=== PATIENT | female | born 1950 | race Caucasian/White ===

== ENCOUNTER 2018-07-18 07:28 | Emergency (ER) | payer OTHER ==
[~2018-07-18] VITALS: Ht 175.3 cm; Wt 99.8 kg
[~2018-07-18 07:28] MED LIST: BENICAR40 MG PO; CELEXA PO; CLONAZEPAM0.5 MG PO; COZAAR50 MG PO; ECOTRIN500 MG PO; PHENABID D1 TAB.SR . PO; PHENERGAN VC W120 ML PO; PLAVIX75 MG PO; PREVACID15 MG PO; PROVENTIL0.5 ML/2.5 IH; SINGULAIR10 MG PO; ZOCO PO; ZYRTEC10 MG PO
[2018-07-18] MEDS ORDERED: DOXYCYCLINE HY100 MG PO (09:46)
== END 2018-07-18 10:12 | disposition home or self-care (01) ==
LOC: ER 07:28
DX: S61.021A Laceration with foreign body of right thumb without damage to nail, initial encounter (principal); W25.XXXA Contact with sharp glass, initial encounter; Y93.89 Activity, other specified; Y92.128 Other place in nursing home as the place of occurrence of the external cause; Y99.8 Other external cause status

== ENCOUNTER 2019-10-17 14:26 | Outpatient (CLI) | payer OTHER ==
[~2019-10-17 14:26] MED LIST changes: +DOXYCYCLINE HY100 MG PO
== END 2019-10-17 14:33 | disposition home or self-care (01) ==
LOC: NUCLEAR 14:26
DX: I87.2 Venous insufficiency (chronic) (peripheral) (principal)

== ENCOUNTER 2019-10-25 22:23 | Emergency (ER) | payer OTHER ==
[~2019-10-25] VITALS: Ht 175.3 cm; Wt 95.3 kg
[2019-10-25] MEDS ORDERED: NEURONTIN600 M1 (22:51)
[2019-10-25] MEDS ORDERED: HYDROCHLOROTH12.5 MG (22:51)
[2019-10-26] MEDS ORDERED: CEFUROXIME500 MG PO (01:11)
== END 2019-10-26 01:28 | disposition home or self-care (01) ==
LOC: ER 22:23
DX: L03.115 Cellulitis of right lower limb (principal)

== ENCOUNTER 2019-11-24 11:22 | Outpatient (CLI) | payer OTHER ==
[~2019-11-24 11:22] MED LIST changes: +CEFUROXIME500 MG PO; +HYDROCHLOROTH12.5 MG; +NEURONTIN600 M1
== END 2019-11-24 11:30 | disposition home or self-care (01) ==
LOC: NUCLEAR 11:22
DX: I73.9 Peripheral vascular disease, unspecified (principal)

== ENCOUNTER 2020-01-31 12:06 | Outpatient (CLI) | payer OTHER | END 2020-01-31 15:26 | disposition home or self-care (01) | LOC: WOUND MED 12:06 | DX: I83.218 Varicose veins of right lower extremity with both ulcer of other part of lower extremity and inflammation (principal); L97.812 Non-pressure chronic ulcer of other part of right lower leg with fat layer exposed; I10 Essential (primary) hypertension | CPT/HCPCS: A4554; A4930; A6216; A6219; A6266; G0463 ==

== ENCOUNTER 2020-02-07 12:09 | Outpatient (CLI) | payer OTHER | END 2020-02-07 13:00 | disposition home or self-care (01) | LOC: WOUND MED 12:09 | DX: I83.218 Varicose veins of right lower extremity with both ulcer of other part of lower extremity and inflammation (principal); L97.812 Non-pressure chronic ulcer of other part of right lower leg with fat layer exposed; I10 Essential (primary) hypertension | CPT/HCPCS: G0463; A4554; A4930; A6216; A6219 ==

== ENCOUNTER 2020-02-14 11:00 | Outpatient (CLI) | payer OTHER | END 2020-02-14 11:42 | disposition home or self-care (01) | LOC: WOUND MED 11:00 | DX: I83.218 Varicose veins of right lower extremity with both ulcer of other part of lower extremity and inflammation (principal); L97.812 Non-pressure chronic ulcer of other part of right lower leg with fat layer exposed; I10 Essential (primary) hypertension | CPT/HCPCS: G0463; A4554; A4930; A6216; A6219 ==

== ENCOUNTER 2020-02-21 08:44 | Outpatient (CLI) | payer OTHER | END 2020-02-21 10:00 | disposition home or self-care (01) | LOC: WOUND MED 08:44 | DX: I83.218 Varicose veins of right lower extremity with both ulcer of other part of lower extremity and inflammation (principal); L97.812 Non-pressure chronic ulcer of other part of right lower leg with fat layer exposed; I10 Essential (primary) hypertension | CPT/HCPCS: G0463; A4554; A4930; A6216; A6219 ==

== ENCOUNTER 2020-02-28 07:54 | Outpatient (CLI) | payer OTHER | END 2020-02-28 12:00 | disposition home or self-care (01) | LOC: WOUND MED 07:54 | DX: I83.218 Varicose veins of right lower extremity with both ulcer of other part of lower extremity and inflammation (principal); L97.812 Non-pressure chronic ulcer of other part of right lower leg with fat layer exposed; I10 Essential (primary) hypertension | CPT/HCPCS: G0463; A4554; A4930; A6196; A6216; A6219 ==

== ENCOUNTER 2020-03-06 07:32 | Outpatient (CLI) | payer OTHER | END 2020-03-06 09:33 | disposition home or self-care (01) | LOC: WOUND MED 07:32 | DX: I83.218 Varicose veins of right lower extremity with both ulcer of other part of lower extremity and inflammation (principal); L97.812 Non-pressure chronic ulcer of other part of right lower leg with fat layer exposed; I10 Essential (primary) hypertension | CPT/HCPCS: G0463; A4554; A4930; A6196; A6216; A6219 ==

== ENCOUNTER 2020-03-13 07:38 | Outpatient (CLI) | payer OTHER | END 2020-03-13 09:55 | disposition home or self-care (01) | LOC: WOUND MED 07:38 | DX: I83.218 Varicose veins of right lower extremity with both ulcer of other part of lower extremity and inflammation (principal); L97.812 Non-pressure chronic ulcer of other part of right lower leg with fat layer exposed; I10 Essential (primary) hypertension | CPT/HCPCS: G0463; A4554; A4930; A6216; A6219 ==

== ENCOUNTER 2020-03-20 10:55 | Outpatient (CLI) | payer OTHER | END 2020-03-20 12:00 | disposition home or self-care (01) | LOC: WOUND MED 10:55 | DX: I83.218 Varicose veins of right lower extremity with both ulcer of other part of lower extremity and inflammation (principal); L97.812 Non-pressure chronic ulcer of other part of right lower leg with fat layer exposed; I10 Essential (primary) hypertension | CPT/HCPCS: G0463; A4554; A4930; A6216; A6219 ==

== ENCOUNTER 2020-03-27 07:36 | Outpatient (CLI) | payer OTHER | END 2020-03-27 11:11 | disposition home or self-care (01) | LOC: WOUND MED 07:36 | PROVIDERS: ATTEND Surgery | DX: I83.218 Varicose veins of right lower extremity with both ulcer of other part of lower extremity and inflammation (principal); L97.812 Non-pressure chronic ulcer of other part of right lower leg with fat layer exposed; I10 Essential (primary) hypertension | CPT/HCPCS: 97602; A4554; A4930; A6216; A6219 ==

== ENCOUNTER 2020-04-03 07:38 | Outpatient (CLI) | payer OTHER | END 2020-04-03 08:55 | disposition home or self-care (01) | LOC: WOUND MED 07:38 | PROVIDERS: ATTEND Surgery | DX: I83.218 Varicose veins of right lower extremity with both ulcer of other part of lower extremity and inflammation (principal); L97.812 Non-pressure chronic ulcer of other part of right lower leg with fat layer exposed; I10 Essential (primary) hypertension | CPT/HCPCS: G0463; A4554; A4930; A6021; A6216; A6219 ==

== ENCOUNTER 2020-04-10 10:23 | Outpatient (CLI) | payer OTHER | END 2020-04-10 11:00 | disposition home or self-care (01) | LOC: WOUND MED 10:23 | PROVIDERS: ATTEND Surgery | DX: I83.218 Varicose veins of right lower extremity with both ulcer of other part of lower extremity and inflammation (principal); L97.812 Non-pressure chronic ulcer of other part of right lower leg with fat layer exposed; I10 Essential (primary) hypertension | CPT/HCPCS: A4554; A4930; A6216; G0463 ==

== ENCOUNTER 2020-04-17 09:49 | Outpatient (CLI) | payer OTHER | END 2020-04-17 11:11 | disposition home or self-care (01) | LOC: WOUND MED 09:49 | PROVIDERS: ATTEND Surgery | DX: I83.218 Varicose veins of right lower extremity with both ulcer of other part of lower extremity and inflammation (principal); L97.812 Non-pressure chronic ulcer of other part of right lower leg with fat layer exposed; I87.2 Venous insufficiency (chronic) (peripheral); I10 Essential (primary) hypertension | CPT/HCPCS: G0463; A4554; A4930; A6021; A6216; A6219 ==

== ENCOUNTER → 2020-04-24 | Outpatient (CLI) | payer OTHER | END | disposition home or self-care (01) | LOC: WOUND MED 10:00 | PROVIDERS: ATTEND Surgery | DX: I83.218 Varicose veins of right lower extremity with both ulcer of other part of lower extremity and inflammation (principal); L97.812 Non-pressure chronic ulcer of other part of right lower leg with fat layer exposed | CPT/HCPCS: G0463; A4554; A4930; A6216 ==

== ENCOUNTER 2021-10-07 11:53 | Outpatient (CLI) | payer OTHER | END 2021-10-07 11:54 | disposition home or self-care (01) | LOC: NUCLEAR 11:53 | PROVIDERS: ATTEND Internal Medicine Cardiovascular Disease | DX: G45.1 Carotid artery syndrome (hemispheric) (principal) ==

== ENCOUNTER → 2023-01-12 | Emergency (ER) | payer OTHER | END | disposition left against medical advice (07) | LOC: ER 08:14 | DX: Z53.21 Procedure and treatment not carried out due to patient leaving prior to being seen by health care provider (principal) ==

== ENCOUNTER 2023-02-16 09:15 | Outpatient (CLI) | payer OTHER | END 2023-02-16 09:17 | disposition home or self-care (01) | LOC: NUCLEAR 09:15 | PROVIDERS: ATTEND Surgery | DX: I73.9 Peripheral vascular disease, unspecified (principal) ==

== ENCOUNTER 2023-03-05 10:34 | Outpatient (CLI) | payer OTHER | END 2023-03-05 10:37 | disposition home or self-care (01) | LOC: NUCLEAR 10:34 | PROVIDERS: ATTEND Surgery | DX: I87.2 Venous insufficiency (chronic) (peripheral) (principal) ==

== ENCOUNTER 2025-04-13 08:14 | Outpatient (CLI) | payer OTHER | END 2025-04-13 08:15 | disposition home or self-care (01) | LOC: NUCLEAR 08:14 | PROVIDERS: ATTEND Internal Medicine Cardiovascular Disease | DX: G45.9 Transient cerebral ischemic attack, unspecified (principal) ==

== ENCOUNTER 2025-10-03 14:29 | Outpatient (CLI) | payer OTHER | END 2025-10-03 14:30 | disposition home or self-care (01) | LOC: NUCLEAR 14:29 | PROVIDERS: ATTEND Internal Medicine Cardiovascular Disease | DX: I87.2 Venous insufficiency (chronic) (peripheral) (principal) ==